=== PATIENT | female | born 1945 ===

== ENCOUNTER 2017-02-28 18:34 | Observation (INO) | payer MEDICARE, OTHER ==
[~2017-02-28] VITALS: Ht 157.5 cm; Wt 74.8 kg
--- NOTE | 2017-02-28 19:00 | NUR ---
PATIENT STATING UP IN HER ROOM BESIDE HER BED. ASSISTED PATIENT GETTING BACK IN BED. TOLD HER SHE IS ON BEDREST PER HER ORDERS. ASSISTED PATIENT USING A BEDPAN. ASSISTED PATIENT GETTING CHANGED INTO A GOWN. PATIENT IS ALERT AND ORIENTED X'S 4. NO SIGNS OF DISTRESS NOTED.
[2017-02-28 19:46] LABS: BASOPHILS 0.3 % (0-2); EOSINOPHILS 0.4 % (0-7); HEMATOCRIT 41.3 % (36.0-48.0); HEMOGLOBIN 14.4 g/dL (12-16); IMMATURE GRANULOCYTES 0.3 % (0-5); LYMPHOCYTES 24.3 % (15-50); MCH 32.4 pg (26.0-34.0); MCHC 34.9 g/dL (31.0-37.0); MEAN PLATELET VOLUME 9.3 fL (7.4-10.4); MONOCYTES 10.4 % (2-11); NEUTROPHILS 64.3 % (40-80); PLATELET COUNT 186 10x3/uL (130-400); RBC 4.44 10x6/uL (4.00-5.40); WBC 9.7 10x3/uL (4.8-10.8)
[2017-02-28 20:00] VITALS: BP 159/64
[2017-02-28 20:00] LABS: CALC OSMOLALITY 279 mosm/kg (275-300); CHLORIDE - SERUM 107 mmol/L (98-107); CREATININE - SERUM 0.7 mg/dL (0.6-1.3); GLUCOSE 85 mg/dL (74-106); SODIUM 141 mmol/L (136-145); UREA NITROGEN 12 mg/dL (7-18); eGFR NON AFRICAN AMERICAN 87 mL/min (90-120)
[2017-02-28] MEDS ORDERED: TIMOPTIC 0.25% O5 M1 EACH EYE (21:50)
[2017-02-28] MEDS ORDERED: TRAVATAN Z2.5 ML EACH EYE (21:50)
[2017-02-28] MEDS ORDERED: FISH OIL 1,0001 CA1 PO (21:51)
[2017-02-28] MEDS ORDERED: VITAMIN D250000 UNIT PO (21:51)
[2017-02-28] MEDS ORDERED: BIOTIN5 MG PO (21:52)
[2017-02-28] MEDS ORDERED: BIOTIN SL (21:54)
[2017-03-01] VITALS: BP 102/63
[2017-03-01 03:43] VITALS: BP 121/69; BMI 30.2
--- NOTE | 2017-03-01 07:42 | NUR ---
COMPLAINING OF GROIN PAIN WITH MOVEMENT. DEMEROL GIVEN IM TO R HIP.
[2017-03-01 08:18] VITALS: BP 150/67
--- NOTE | 2017-03-01 08:20 | NUR ---
ASSESSMENT COMPLETE. NO IV ACCESS. COMPLAINING OF PAIN TO GROIN AREA WITH MOVEMENT.
--- NOTE | 2017-03-01 11:30 | NUR ---
VISITING WITH COMPANY. DENIES ANY NEEDS AT THIS TIME.
[2017-03-01] MEDS ORDERED: CYCLOBENZAPRINE10 MG PO (12:12)
[2017-03-01] MEDS ORDERED: Demerol IM (12:12)
[2017-03-01 13:03] VITALS: BP 140/74
[2017-03-01 13:06] VITALS: Ht 157.5 cm; Wt 74.8 kg
--- NOTE | 2017-03-01 13:50 | NUR ---
Rehab Prescreening Consult recieved and the patient has been visited. She meets IRF criteria and agrees to participate in the required therapy. She will be admitted today. Sangita Lorenzo RN Clinical Liaison, Rehab
--- NOTE | 2017-03-01 14:00 | NUR ---
22 GUAGE INSERTED TO R HAND BY SAMANTHA UNGER RN WITHOUT DIFFICULTY X 1 ATTEMPT. DENIES ANY NEEDS AT THIS TIME.
[2017-03-01 16:21] VITALS: BP 127/49
--- NOTE | 2017-03-01 17:02 | NUR ---
REPORT CALLED TO [facility] ON REHAB. WILL DC TO REHAB AFTER EATING DINNER.
--- NOTE | 2017-03-01 18:15 | NUR ---
DC'D TO REHAB ROOM 1117 A VIA BED WITH BELONGINGS.
[2017-03-01] MEDS ORDERED: DEMEROL 2525 MG/1 ML IV (20:32)
[2017-03-01] MEDS ORDERED: DEMEROL 2525 MG/1 ML IM (20:33)
== END 2017-03-01 18:15 ==
LOC: D.MS 18:34 → OBSVTIME 18:35 → D.MS 03-01 18:15
PROVIDERS: ADMIT Family Medicine
DX: S32.592A Other specified fracture of left pubis, initial encounter for closed fracture (principal); W10.9XXA Fall (on) (from) unspecified stairs and steps, initial encounter; M81.0 Age-related osteoporosis without current pathological fracture; E55.9 Vitamin D deficiency, unspecified

== ENCOUNTER 2017-03-01 16:28 | Inpatient (IN) | payer MEDICARE, OTHER ==
[~2017-03-01] VITALS: Ht 157.5 cm; Wt 74.8 kg
[~2017-03-01 16:28] MED LIST: BIOTIN SL; BIOTIN5 MG PO; CYCLOBENZAPRINE10 MG PO; Demerol IM; FISH OIL 1,0001 CA1 PO; TIMOPTIC 0.25% O5 M1 EACH EYE; TRAVATAN Z2.5 ML EACH EYE; VITAMIN D250000 UNIT PO
--- NOTE | 2017-03-01 19:27 | NUR ---
UP IN THE BED WITH SEVERAL VISITORS AT BEDSIDE. PLEASANT AND TALKATIVE. NO S/S OF DISTRESS OBSERVED.
[2017-03-01] MEDS ORDERED: DEMEROL 2525 MG/1 ML IV (20:32)
[2017-03-01] MEDS ORDERED: DEMEROL 2525 MG/1 ML IM (20:33)
--- NOTE | 2017-03-01 21:04 | NUR ---
UP IN BED WITH EYES OPEN AND TV ON. PLEASANT AND COOPERATIVE. DENIES ANY PAIN. INCONTINENT OF BLADDER AND UNAWARE. DENIES ANY PAIN AT THIS TIME.
[2017-03-01 23:06] VITALS: BP 136/61; BMI 30.2
--- NOTE | 2017-03-02 01:12 | NUR ---
DEMEROL 25 MG IM GIVEN AT 0038. WHEN ATTEMPTING TO RECONCILLE MEDICATION THE COMPUTER LOCKED UP. UNABLE TO SIGN OUT MEDICATION. COMPUTER STILL WILL NOT LET THIS NURSE SIGN MEDICATION OUT STATING THIS NURSE ALREADY DOCUMENTING. WILL REASSESS PAIN.
--- NOTE | 2017-03-02 02:07 | NUR ---
RESTING IN BED WITH EYES CLOSED. NO S/S OF DISTRESS OBSERVED. CALL LIGHT IN REACH AND BED ALARM IN PLACE AND FUNCTIONING PROPERLY.
[2017-03-02 05:05] LABS: BASOPHILS 0.1 % (0-2); EOSINOPHILS 2.2 % (0-7); HEMATOCRIT 40.4 % (36.0-48.0); IMMATURE GRANULOCYTES 0.1 % (0-5); MCHC 34.7 g/dL (31.0-37.0); MCV 92.4 fL (80.0-100.0); MEAN PLATELET VOLUME 9.5 fL (7.4-10.4); MONOCYTES 9.2 % (2-11); NEUTROPHILS 62.4 % (40-80); PLATELET COUNT 178 10x3/uL (130-400); RBC 4.37 10x6/uL (4.00-5.40); WBC 7.6 10x3/uL (4.8-10.8)
[2017-03-02 05:21] LABS: CALC OSMOLALITY 277 mosm/kg (275-300); CALCIUM 8.5 mg/dL (8.5-10.1); CARBON DIOXIDE 22.2 mmol/L (21.0-32.0); CHLORIDE - SERUM 106 mmol/L (98-107); CREATININE - SERUM 0.7 mg/dL (0.6-1.3); POTASSIUM - SERUM 3.6 mmol/L (3.5-5.1); SODIUM 138 mmol/L (136-145); UREA NITROGEN 12 mg/dL (7-18); eGFR NON AFRICAN AMERICAN 87 mL/min (90-120)
[2017-03-02 05:22] LABS: GLUCOSE 133 mg/dL (74-106)
[2017-03-02 07:11] VITALS: BP 147/69
--- NOTE | 2017-03-02 07:33 | NUR ---
RESTING QUIETLY IN BED. NO S/S DISTRESS NOTED. CALL LIGHT IN REACH
[2017-03-02 10:08] VITALS: Ht 157.5 cm; Wt 74.8 kg
[2017-03-02 10:51] VITALS: BP 147/69
--- NOTE | 2017-03-02 12:05 | NUR ---
SITTING UP EATING LUNCH. DENIES NEEDS OR C/O. CALL LIGHT IN REACH
--- NOTE | 2017-03-02 12:46 | NUR ---
SITTING IN W/C IN ROOM. ALERT AND ORIENTED.
[2017-03-02 19:29] VITALS: BP 127/58
--- NOTE | 2017-03-02 19:29 | NUR ---
RECIEVED UP IN W/C. AWAKE ALERT AND ORIENTED. PLEASANT AND TALKATIVE. DENIES ANY PAIN. EXCITED ABOUT RECIEVING THERAPY TODAY. C/O BEING VERY WEAK.
--- NOTE | 2017-03-02 21:49 | NUR ---
ASSISTED TO BED. UNABLE TO BEAR WEIGHT ON RIGHT LEG. ATTEMPTED TO EDUCATE HER TO MAKE SMALL STEPS AROUND AND NOT TO TWIST HER HIPS WHEN SITTING DOWN. SHE STATED SHE WENT TO BATHROOM BY HERSELF EARLIER. EXPLAINED THAT SHE COULD FALL AND INJURY HERSELF WORSE. ASKED HER TO CALL IF SHE NEEDED TO GO TO THE BATHROOM FOR HER SAFTEY. VERBAL AGREEMENT MADE AND VERBAL UNDERSTANING VOICED.
--- NOTE | 2017-03-03 00:14 | NUR ---
RESTING IN BED WITH EYES CLOSED AND SNORING. NO S/S OF DISTRESS OBSERVED. CALL LIGHT AND OVERBED TABLE IN REACH.
--- NOTE | 2017-03-03 04:36 | NUR ---
RESTING IN BED IWTH EYES CLOSED. NO S/S OF DISTRESS OBSERVED. CALL LIGHT IN REACH.
--- NOTE | 2017-03-03 08:00 | NUR ---
SITTING UP IN BED EATING BREAKFAST. DENIES NEEDS OR C/O CALL LIGHT IN REACH
--- NOTE | 2017-03-03 12:32 | NUR ---
SITTING UP IN W/C IN ROOM EATING LUNCH. ALERT AND ORIENTED X4. DENIES INCREASED PAIN.
[2017-03-03 12:34] VITALS: BP 120/47
--- NOTE | 2017-03-03 17:06 | NUR ---
SITTING IN W/C WATCHING TV. HAS BEEN IN W/C MOST OF THE DAY AT HER CHOICE. DENIES NEEDING PAIN MEDS AT PRESENT.
[2017-03-03 19:00] VITALS: BP 114/54
--- NOTE | 2017-03-03 19:00 | NUR ---
RECIEVED UP IN WHEEL CHAIR WITH PERSONAL ALARM ATTACHED. PLEASANT AND TALKATIVE. DEIES ANY PAIN.
--- NOTE | 2017-03-03 21:04 | NUR ---
UP IN W/C WATCHING TV. ASSISTED TO TOILET. REQUIRES SUPERVISION. PLEASANT AND COOPERATIVE. DENIES ANY PAIN OR DISCOMFORT. CALL LIGHT AND WATER IN REACH.
--- NOTE | 2017-03-04 04:33 | NUR ---
RESTING IN BED WITH EYES CLOSED. NO S/S OF DISTRESS OBSERVED. CALL LIGHT AND OVERBED ATBLE IN [facility].
[2017-03-04 05:24] LABS: BASOPHILS 0.3 % (0-2); EOSINOPHILS 3.1 % (0-7); HEMATOCRIT 38.5 % (36.0-48.0); HEMOGLOBIN 13.3 g/dL (12-16); IMMATURE GRANULOCYTES 0.1 % (0-5); LYMPHOCYTES 45.9 % (15-50); MCH 32.1 pg (26.0-34.0); MCHC 34.5 g/dL (31.0-37.0); MEAN PLATELET VOLUME 9.4 fL (7.4-10.4); MONOCYTES 10.4 % (2-11); NEUTROPHILS 40.2 % (40-80); PLATELET COUNT 178 10x3/uL (130-400); RBC 4.14 10x6/uL (4.00-5.40); RDW 13.6 % (11.5-14.5); WBC 7.7 10x3/uL (4.8-10.8)
[2017-03-04 05:32] LABS: CALC OSMOLALITY 282 mosm/kg (275-300); CALCIUM 8.3 mg/dL (8.5-10.1); CARBON DIOXIDE 22.6 mmol/L (21.0-32.0); CHLORIDE - SERUM 108 mmol/L (98-107); CREATININE - SERUM 0.7 mg/dL (0.6-1.3); GLUCOSE 104 mg/dL (74-106); POTASSIUM - SERUM 3.4 mmol/L (3.5-5.1); SODIUM 142 mmol/L (136-145); UREA NITROGEN 13 mg/dL (7-18); eGFR NON AFRICAN AMERICAN 87 mL/min (90-120)
--- NOTE | 2017-03-04 06:24 | NUR ---
RESTING IN BED WITH EYES CLOSED. NO S/S OF DISTRESS OBSERVED. CALL LIGHT IN REACH.
[2017-03-04 08:06] VITALS: BP 149/75
--- NOTE | 2017-03-04 08:15 | NUR ---
PT RESTING IN BED WITH EYES OPEN CALL LIGHT IN REACH WILL MONITER
--- NOTE | 2017-03-04 14:49 | NUR ---
PT UP IN WHEELCHAIR AT BEDSIDE WILL MONITER
--- NOTE | 2017-03-04 18:30 | NUR ---
PT RESTING IN ROOM, DENIES NEEDS. WCTM.
--- NOTE | 2017-03-04 19:10 | NUR ---
RECIEVED UP IN W/C. PLEASANT AND COOPERATIVE. IV TO LEFT HAND D/C'D EARLIER TODAY. BANDAIDE TO SIE INTACT. NO REDNESS SWELLING OR DRAINAGE OBSERVED. CALL LIGHT IN REACH.
[2017-03-04 20:07] VITALS: BP 92/74
--- NOTE | 2017-03-04 21:00 | NUR ---
UP IN SHOWER AT THIS TIME. ASSISTED TO TOILET PRIOR TO SHOWER. NO C/O PAIN.
--- NOTE | 2017-03-05 | NUR ---
RESTING IN BED WITH EYES CLOSED. NO S/S OF DISTRESS OBSERVED. CALL LIGHT IN REACH.
--- NOTE | 2017-03-05 02:14 | NUR ---
AWAKE AND ALERT. ASSISTED TO TOILET. REQUIRES SUPERVISION. USES GRAB BAR TO AIDE HER TO STAND. GETS OFF TOILET SAME WAY. CALL LIGHT IN REACH.
--- NOTE | 2017-03-05 06:39 | NUR ---
RESTING IN BED WITH EYES CLOSED AT THIS TIME. NO S/S OF DISTRESS OBSERVED. SCD'S IN PLACE. CALL LIGHT IN REACH.
--- NOTE | 2017-03-05 08:15 | NUR ---
PT UP IN BED WITH EYES OPEN CALL LIGHT IN REACH EATING BREAKFAST TOLERATING WELL
[2017-03-05 08:19] VITALS: BP 128/50
--- NOTE | 2017-03-05 09:56 | NUR ---
Nutrition Monitoring and Eval: Pt is eating 72% meal avg on a regular diet. +BM 03/03/17. Meds and labs reviewed. Pt continues at low nutritional risk. Rec continue current diet. RD following.
--- NOTE | 2017-03-05 12:54 | NUR ---
PT RESTING IN BED WITH EYES OPEN CALL LIGHT IN REACH NO PROBLEMS WILL MONITER
--- NOTE | 2017-03-05 15:58 | NUR ---
PATIENT ADMITTED TO REHAB FROM ACUTE FLOOR. PLANS ARE FOR PATIENT TO RETURN HOME. WILL CONTINUE TO FOLLOW WITH PATIENT
--- NOTE | 2017-03-05 18:30 | NUR ---
PT RESTING IN ROOM, DENIES NEEDS. WCTM.
--- NOTE | 2017-03-05 19:40 | NUR ---
PT IS SITTING IN A WC IN HER ROOM WATCHING TV. AND VISITING WITH FRIENDS. ALERT AND ORIENTED X 3. DENIES ACUTE PAIN OR DISCOMFORT AT THIS TIME. VSS. NO NEEDS VOICED. SR'S ARE UP X 2 IN BED. CALL LIGHT AND BEDSIDE TABLE ARE WITHIN EASY REACH.
[2017-03-05 20:07] VITALS: BP 129/66
--- NOTE | 2017-03-05 21:48 | NUR ---
PT ASSISTED TO THE BATHROOM WITH MIN ASSIST ONLY FOR TRANSFERS, AND PULLING UP HER PANTS. SBA WITH ALL OTHER TASKS. LARGE LOOSE BM NOTED.
--- NOTE | 2017-03-05 23:38 | NUR ---
RESTING QUIETLY IN BED WITH EYES CLOSED.
--- NOTE | 2017-03-06 03:10 | NUR ---
RESTING QUIETLY IN BED, EYES CLOSED.
--- NOTE | 2017-03-06 06:24 | NUR ---
PT RESTING IN BED WITH EYES OPEN. NO NEEDS VOICED.
--- NOTE | 2017-03-06 08:05 | NUR ---
SITTING UP IN W/C IN ROOM FOR BREAKFAST. CALL LIGHT IN REACH.
[2017-03-06 09:06] VITALS: BP 135/56
--- NOTE | 2017-03-06 12:12 | NUR ---
STILL SITTING UP IN W/C. PAIN CONTROLLED WITH CURRENT MEDS.
--- NOTE | 2017-03-06 17:20 | RHP ---
PATIENT: ANDRE SHER MEDICAL RECORD: [id number] ACCOUNT: [id number] LOCATION:[facility]1117 : 43 ADMISSION DATE: 03/01/17 REHABILITATION HISTORY AND PHYSICAL EXAMINATION POST ADMISSION PHYSICIAN EXAMINATION DATE OF ADMISSION: 03/01/2017 ADMITTING DIAGNOSIS: Fractures of the left superior and inferior ramus. HISTORY OF PRESENT ILLNESS: The patient is a 71-year-old female patient admitted to rehab with a left superior and inferior pubic rami fracture. She presented to [facility] complaining of left hip pain that radiated to her groin and leg. She said that she was walking upstairs and missed one, causing her to fall on her left side. Onset was 1-2 hours prior to coming to the clinic. On exam she had crepitus, tenderness and effusion. She had difficulty getting up from a seated position, required 2-person assist in transfer, unable to put pressure on the left foot. Pelvis x-ray showed fracture of left superior and inferior pubic rami. She was admitted to the hospital. Pain continues to be 6 out of 10, receiving Demerol IV and Toradol. She has osteoarthritis and vitamin D deficiency, making her at risk for diabetes and other autoimmune disease as well as depression. She has chronic pain that interferes with her daily activities. 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 She is being monitored for acute mental status changes and shunt malfunction. Since then she is a high risk for falls. She was living with her spouse and taking care of him. She was moderately independent with ADLs, mobility using a cane. She wants to regain her strength to return home with her . COMORBIDITIES: Include hip pain, recent falls, vitamin D deficiency, inability to ambulate, inability to perform ADLs, fatigue, malaise, chronic back pain, osteoarthritis, glaucoma and thyroid nodule. PAST MEDICAL HISTORY: Significant for osteoporosis, vitamin D deficiency, osteoarthritis, glaucoma, fatigue, malaise and ventricular shunt. PAST SURGICAL HISTORY: Please see previous charts. ALLERGIES: CEPHALOSPORINS, NAPROXEN AND ZITHROMAX. CURRENT MEDICATIONS: Include meperidine as needed, on Cosopt eyedrops 1 drop b.i.d., polyethylene glycol 17 grams in 8 ounces of water daily, meperidine 25 mg q.6 hours p.r.n., travoprost eyedrops at bedtime, and Flexeril 10 mg t.i.d. p.r.n. spasms. HABITS: No tobacco use. FAMILY HISTORY: Noncontributory. SOCIAL HISTORY: Once again, the patient hopes to return back home and take care of her spouse. REVIEW OF SYSTEMS: GENERAL: Does complain of weakness. HEENT: Denies cold, cough, or congestion. HISTORY AND PHYSICAL [id number] ANDRE SHER CARDIOVASCULAR: Denies chest pain. PHYSICAL EXAMINATION: VITAL SIGNS: Stable, afebrile. GENERAL: A well-developed female in no acute distress, alert upon exam. HEENT: Normocephalic and atraumatic. Mucosa moist. NECK: Supple. No lymphadenopathy. LUNGS: Clear at this time. HEART: Regular rate and rhythm. ABDOMEN: Benign. EXTREMITIES: No clubbing, cyanosis or edema. NEUROLOGIC: She is intact. It should be noted though that she is unable to get up and bear weight on this left side without it having extreme pain. ASSESSMENT: This is a 71-year-old female patient who presents secondary to fractures in the left superior and inferior ramus secondary to a fall. The patient has potential to make improvement. We instituted the following multidisciplinary therapies including to, but not limited to physical, occupational, respiratory, speech, nutritional services, prosthetics and orthotics. Given her complex condition and risk for more complications, rehabilitation services cannot be provided at a low level of care such as a fpc facility. PLAN: 1. Admit to [facility] rehab for intensive inpatient therapy to include the following disciplines: A. Physical therapy to improve gait, all transfer skills and bed mobility to a modified level. B. Occupational therapy to improve activities of daily living a modified independent level. C. Case management to assist with discharge planning and placement options. D. Nutrition to assist with nutritional needs. E. Rehabilitation nursing to assist in monitoring the patient's underlying medical conditions and to assist with any type of bowel or bladder management. F. The patient's current medications and medical care will be continued. G. The patient will be placed on standard fall precautions. H. The patient's estimated length of stay is approximately 10-14 days. I. Discuss this patient during care team staff meeting this week. TRANSINT:[id number] Voice Confirmation ID: [id number] DOCUMENT ID: [id number] ANKITA notes whether there has been none or any medical/functional change since admission: - ANKITA attests patient continues to be appropriate for IRF: - HISTORY AND PHYSICAL [id number] ANDRE SHER SCOTT MD at 1720 CC: [id number] DICTATION DATE: 03/02/171823 LEGAL RECRUITER: 03/02/172030 ADM IN [place] [id number] [place] [id number]
[2017-03-06 19:45] VITALS: BP 128/60
--- NOTE | 2017-03-06 19:45 | NUR ---
PT RESTING IN HER WC IN HER ROOM WATCHING TV. ALERT AND ORIENTED X 4. DENIES PAIN OR DISCOMFORT AT THIS TIME. OFFERED A SHOWER, AND SHE STATED OT DID HER SHOWER PART OF HER THERAPY THIS AM. VSS. NO NEED VOICED. CALL LIGHT AND BEDSIDE TABLE ARE WITHIN EASY REACH.
--- NOTE | 2017-03-06 22:28 | NUR ---
PT RESTING IN BED WITH EYES CLOSED. NO DISTRESS NOTED.
--- NOTE | 2017-03-07 00:24 | NUR ---
PT ASSISTED TO THE BATHROOM WITH SBA. MOD ASSIST WITH CLOTHING.
--- NOTE | 2017-03-07 02:40 | NUR ---
IN BED, EYES CLOSED. NO DISTRESS NOTED.
--- NOTE | 2017-03-07 06:17 | NUR ---
PT ASSISTED TO THE BATHROOM WITH MIN ASSIST. VOIDED WITHOUT DIFFICULTY. PT CHOSE TO SIT UP IN WC AFTER, BUT REFUSED TO PUT ON HER PANTS AT THIS TIME.
--- NOTE | 2017-03-07 08:11 | NUR ---
EATING BREAKFAST IN ROOM. CALL LIGHT IN REACH. DENIES NEEDS.
[2017-03-07 08:50] VITALS: BP 125/45
--- NOTE | 2017-03-07 19:20 | NUR ---
PT. UP IN W/C AND HAS NO VOICED NEEDS AT THIS TIME. CALL LIGHT WITHIN REACH. ASSESSMENT COMPLETED.
[2017-03-07 20:00] VITALS: BP 130/70
--- NOTE | 2017-03-07 23:02 | NUR ---
PT. IN BED WITH HOB UP FOR COMFORT WITH EYES CLOSED AND RESP. DEEP AND EVEN. SCS'S ON WITHOUT ANY ALARMS. CALL LIGHT WITHIN REACH.
--- NOTE | 2017-03-08 03:00 | NUR ---
PT. IN BED WITH HOB UP FOR COMFORT WITH EYES CLOSED AND RESP. DEEP AND EVEN. SCD'S IN PLACE WITHOUT ANY ALARMS. CALL LIGHT WITHIN REACH.
[2017-03-08 07:42] VITALS: BP 119/56
--- NOTE | 2017-03-08 07:44 | NUR ---
RESTING QUIETLY IN BED. EYES CLOSED. ALL LIGHT IN REACH
--- NOTE | 2017-03-08 13:02 | NUR ---
SITTING IN W/C IN ROOM. HAS LUNCH AND NOW RESTING IN CHAIR AND WATCHING TV.
--- NOTE | 2017-03-08 16:31 | NUR ---
PT ASKED FOR PAIN MEDS. NURSE THOUGHT SHE STILL GOT 25MG AND WASTED FIRST HALF OF DEMERAL PILL (THAT WAS 50MG). REALIZED PT GOT 50 MG PILL. HAD TO WASTE SECOND HALF OF PILL SO A NEW 50 MG PILL COULD BE GIVEN.
[2017-03-08 19:27] VITALS: BP 111/45
--- NOTE | 2017-03-08 19:27 | NUR ---
RECIEVED UP IN W/C . PLEASANT ANAD COOPERATIVE. DENIES ANY PAIN. CALL LIGHT IN REACH.
--- NOTE | 2017-03-08 21:18 | NUR ---
UP IN W/C. PLEASANT AND COOPERATIVE. DENIES ANY PAIN AT THIS TIME. CALL LIGHT IN REACH.
--- NOTE | 2017-03-09 00:59 | NUR ---
C/O PELVIC PAIN AT 8. REQUESTED PAIN MEDICATON. MED GIVEN PER ORDERS. WILL REASSESS.
--- NOTE | 2017-03-09 02:18 | NUR ---
RESTING IN BED WITH EYES CLOSED. NO S/S OF DISTRESS OBSERVED. CALL LIGHT AND OVER BED TABLE IN REACH.
--- NOTE | 2017-03-09 04:21 | NUR ---
ASSISTED TO BED. PLEASANT AND COOPERATIVE. DENIES ANY PAIN. DOES HAVE EXPRESSIONS OF PAIN WHEN TRANSFERING. DOES NOT WANT ANYTHING AT THIS TIME.
--- NOTE | 2017-03-09 07:10 | NUR ---
RESTING QUIETLY IN BED. NO S/S DISTRESS. CALL LIGHT IN REACH
[2017-03-09 13:18] VITALS: BP 125/71
--- NOTE | 2017-03-09 13:56 | NUR ---
ASSISTED PT TO SHOWER.
--- NOTE | 2017-03-09 19:01 | NUR ---
RECIEVED UP IN W/C WATCHING TV. PLEASANT AND TALKATIVE. DENIES ANY PAIN. CALL LIGHT IN REACH.
[2017-03-09 19:33] VITALS: BP 100/45
--- NOTE | 2017-03-09 20:39 | NUR ---
C/O PELVIC PAIN AND REQUESTED PAIN MEDICATION. MEDS GIVEN PER ORDERS. WILL REASSESS.
--- NOTE | 2017-03-09 21:18 | NUR ---
RESTING IN BED WITH EYES OPEN AND TV ON. CALL LIGHT AND OVERBED TABLE IN REACH.
--- NOTE | 2017-03-10 01:07 | NUR ---
RESTING IN BED WITH EYES CLOSED. NO S/S OF DISTRESS OBSERVED. O2@4 LITERS PER N/C IN PLACE. RESP. EVEN AND UNLABORED. CALL LIGHT AND OVERBED TABLE IN REACH.
[2017-03-10 07:36] VITALS: BP 118/55
--- NOTE | 2017-03-10 13:00 | NUR ---
PT ON SIDE OF BED WATCHING TV DENIES PAIN AT THIS TIME. WILL MONITOR
--- NOTE | 2017-03-10 18:12 | NUR ---
PT RESTING ,DENIES NEEDS. WCTM.
--- NOTE | 2017-03-10 19:20 | NUR ---
SIT UP IN WHEELCHAIR AND WATCH TV NEWS.
[2017-03-11 00:08] VITALS: BP 132/77
--- NOTE | 2017-03-11 01:06 | NUR ---
REST IN BED, EYE CLOSE, CALL LIGHT IN REACH.
--- NOTE | 2017-03-11 03:05 | NUR ---
ASSISTED PT TO BATHROOM AND BACK TO BED.
[2017-03-11 07:09] LABS: BASOPHILS 0.4 % (0-2); EOSINOPHILS 2.4 % (0-7); HEMATOCRIT 37.9 % (36.0-48.0); HEMOGLOBIN 12.9 g/dL (12-16); IMMATURE GRANULOCYTES 0.1 % (0-5); LYMPHOCYTES 42.7 % (15-50); MCH 32.3 pg (26.0-34.0); MCV 94.8 fL (80.0-100.0); MEAN PLATELET VOLUME 9.2 fL (7.4-10.4); MONOCYTES 11.8 % (2-11); NEUTROPHILS 42.6 % (40-80); RDW 13.6 % (11.5-14.5); WBC 7.1 10x3/uL (4.8-10.8)
[2017-03-11 07:12] LABS: PLATELET COUNT 261 10x3/uL (130-400)
[2017-03-11 07:17] LABS: CALC OSMOLALITY 281 mosm/kg (275-300); CALCIUM 8.7 mg/dL (8.5-10.1); CARBON DIOXIDE 22.3 mmol/L (21.0-32.0); CHLORIDE - SERUM 110 mmol/L (98-107); CREATININE - SERUM 0.6 mg/dL (0.6-1.3); GLUCOSE 95 mg/dL (74-106); SODIUM 141 mmol/L (136-145); UREA NITROGEN 14 mg/dL (7-18); eGFR NON AFRICAN AMERICAN > 90 mL/min (90-120)
[2017-03-11 08:00] VITALS: BP 127/56
--- NOTE | 2017-03-11 08:02 | NUR ---
PT RESTING IN BED WITH EYES OPEN CALL LIGHT IN REACH NO PROBLEMS WILL MONITER
--- NOTE | 2017-03-11 19:30 | NUR ---
PM ROUNDS MADE, PT SITTING UP IN WC VISITING WITH FAMILY, WILL COME BACK TO DO ASSESSMENT
--- NOTE | 2017-03-11 20:30 | NUR ---
ASSESSMENT PER FLOW SHEET, PT DENIES FLATUS OR BM, PT INST ON USING CALL LIGHT WHEN NEEDING TO GET UP TO VOID, PT VERBALIZES UNDERSTANDING, PT RATES LEFT HIP PAIN 10/08, INFORMED PT THAT I WILL CHECK TO SEE WHEN PAIN MED IS DUE, PT VERBALIZES UNDERSTANDING, DENIES NEEDS AT THIS TIME
--- NOTE | 2017-03-11 21:26 | NUR ---
PT SITTING UP IN WC, ADM 2100 MEDS AND PAIN MED PER MD ORDERS, SEE EMAR, PT REPORTS THAT SHE IS GOING TO SIT UP FOR JUST A BIT MORE, THEN WASH FACE, USE THE BR, AND THEN GO TO BED, PT INST TO USE CALL LIGHT WHEN READY FOR BED
[2017-03-11 21:45] VITALS: BP 117/58
--- NOTE | 2017-03-11 22:30 | NUR ---
PT AT SINK, JUST FINISHED WASHING FACE AND BRUSHING TEETH, PT TO BR, PT VOIDED BY SELF WITH NO DIFFICULTY, PT BACK TO , TO SINK, WASHES HANDS, PT TO BED, PT POSITIONED SELF, PT DENIES FURTHER NEEDS, BED IN LOW POSITION, SIDE RAILS X 2, CALL LIGHT IN REACH
--- NOTE | 2017-03-12 00:30 | NUR ---
PT RESTING WITH EYES CLOSED, RESP QUIET, NO DISTRESS NOTED, LEFT UNDISTURBED AT THIS TIME
--- NOTE | 2017-03-12 02:15 | NUR ---
PT RESTING WITH EYES CLOSED, RESP QUIET, NO DISTRESS NOTED, LEFT UNDISTURBED AT THIS TIME, BED IN LOW POSITION, SIDE RAILS X 2, CALL LIGHT IN REACH, BED ALARM ON AND WORKING PROPERLY
--- NOTE | 2017-03-12 04:10 | NUR ---
PT RESTING WITH EYES CLOSED, RESP QUIET, NO DISTRESS NOTED, LEFT UNDISTURBED AT THIS TIME
--- NOTE | 2017-03-12 06:20 | NUR ---
PT AWAKE, REPORTS SLEEPING WELL LAST NIGHT, DENIES NEEDS OR PAIN AT THIS TIME, BED IN LOW POSITION, SIDE RAILS X 2, CALL LIGHT IN REACH, BED ALARM ON AND WORKING PROPERLY
--- NOTE | 2017-03-12 06:44 | NUR ---
SHIFT REPORT TO DAY SHIFT
[2017-03-12 08:33] VITALS: BP 135/54
--- NOTE | 2017-03-12 12:00 | NUR ---
PT UP IN WHEELCHAIR EATING LUNCH TOLERATING WELL WILL MONITER
--- NOTE | 2017-03-12 14:01 | NUR ---
Nutrition Follow Up: Pt is eating 73% meal avg on a regular diet. +BM 03/11/17. Labs and meds reviewed. Rec continue current diet. RD following.
--- NOTE | 2017-03-12 15:29 | NUR ---
PATIENT FEELS THAT SHE IS UNABLE TO RETURN HOME AT THIS TIME, SHE WOULD LIKE REFERRAL TO BE FAXED TO [facility] AND IF NO VACANCY SHE WOULD LIKE TO GO TO [place]. REFERRAL FAXED TO [facility]
--- NOTE | 2017-03-12 18:06 | NUR ---
PT RESTING IN BED WITH EYES OPEN CALL LIGHT IN REACH WILL MONITER
--- NOTE | 2017-03-12 19:00 | NUR ---
RECIEVED UP IN W/C.PLEASANT AND COOPERATIVE. DENIES ANY PAIN OR DISCOMFORT AT THIS TIME. REQUEST PAIN PILL WHEN MEDS ARE GIVEN. CALL LIGHT IN REACH.
[2017-03-12 19:25] VITALS: BP 122/60
[2017-03-12 20:04] VITALS: BP 122/60
--- NOTE | 2017-03-12 21:32 | NUR ---
UP IN W/C. PLEASANT AND COOPERATIVE. DENIES ANY PAIN AT THIS TIME.CALL LIGHT IN REACH.
--- NOTE | 2017-03-13 06:36 | NUR ---
ASSISTED OUT OF BED AND TO TOILET. THEN ASSISTED WITH DRESSING. UNABLE TO PUT PANTS OR BRIEF ON. STATED " THERAPY IS GOING TO COME GET ME AT 0730 THIS MORNING". UP IN W/C READY AT THIS TIME.
[2017-03-13 08:53] VITALS: BP 135/48
--- NOTE | 2017-03-13 10:42 | NUR ---
SITTING IN HORTA IN W/C TALKING TO STAFF.
--- NOTE | 2017-03-13 11:14 | NUR ---
SITTING UP IN W/C. DENIES NEEDS
--- NOTE | 2017-03-13 16:00 | NUR ---
CARE TEAM MEETING: PATIENT PROGRESSING WELL AT THIS TIME. SHE HAS BEEN ACCEPTED TO [facility], SHE WILL DISCHARGE THERE 03/15/17 VIA FACILITY VAN.
--- NOTE | 2017-03-13 19:00 | NUR ---
RECIEVED UP IN W/C .PLEASANT AND COOPERATIVE. DENIES ANY PAIN. CALL LIGHT IN REACH.
--- NOTE | 2017-03-13 21:12 | NUR ---
UP IN W/C. PLEASANT AND COOPERATIVE. CALL LIGHT AND OVERBED TABLE IN REQACH.
--- NOTE | 2017-03-14 00:05 | NUR ---
RESTING IN BED WITH EYES CLOSED. NO S/S OF DISTRESS OBSERVED. CALL LIGHT AND OVERBED TABLE IN REACH.
--- NOTE | 2017-03-14 04:16 | NUR ---
RESTING IN BED WITH EYES CLOSED. HOB ELEVATED. NO S/S OF DISTRESS OBSERVED. CALL LIGHT AND OVERBED TABLE IN REACH.
--- NOTE | 2017-03-14 12:08 | NUR ---
EATING LUNCH. DENIES NEEDS. CALL LIGHT IN REACH
--- NOTE | 2017-03-14 17:54 | NUR ---
SITTING UP IN W/C IN ROOM EATING SUPPER. CALL LIGHT IN REACH
--- NOTE | 2017-03-14 19:30 | NUR ---
PT UP IN W/C. WATCHING TV. ALERT & ORIENTED. NO O2. NO IV. BED IN LOWEST POSITION AND CALL LIGHT WITHIN REACH.
[2017-03-14 20:02] VITALS: BP 120/56
--- NOTE | 2017-03-14 23:30 | NUR ---
PT LYING IN BED. EYES CLOSED. CHES RISING AND FALLING. BED IN LOWEST POSITION AND CALL LIGHT WITHIN REACH.
--- NOTE | 2017-03-15 03:30 | NUR ---
PT IN BED WITH HOB UP FOR COMFORT. EYES CLOSED. RESPIRATIONS EVEN AND UNLABORED. BED IN LOWEST POSITION AND CALL LIGHT WITHIN REACH.
--- NOTE | 2017-03-15 04:58 | NUR ---
RESTING IN BED WITH EYES CLOSED. NO S/S OF DISTRESS OBSERVED. HOB ELEVATED TO 30 DEGREES. CALL LIGHT AND OVERBED TABLE IN REACH.
--- NOTE | 2017-03-15 05:54 | NUR ---
ASSISTED PT TO BATHROOM AND GETTING DRESSING. PT UP IN W/C WATCHING TV. CALL LIGHT WITHIN REACH.
--- NOTE | 2017-03-15 08:00 | NUR ---
PATIENT IS ALERT/ORIENT X4. SITTING UP IN WHEELCHAIR WITH CALL LIGHT INPLACE. VOICES NO NEEDS AT THIS TIME. THIS NURSE TALKED ABOUT DISCHARGE TO [facility] WITH PATIENT. PATIENT STATED SHE IS EXCITED TO GO AND HER NEXT STEP WILL BE TO GO BACK HOME.
[2017-03-15] MEDS ORDERED: DEMEROL 2525 MG/1 ML IM (08:59)
[2017-03-15 09:03] VITALS: BP 119/47
--- NOTE | 2017-03-15 09:34 | NUR ---
PATIENT DISCHARING TO [facility]. NO DME OR HOME HEALTH NEEDED AT THIS TIME. PATIENT CHOICE FORM FOR SNF AND [facility] FORM SIGNED, EXPLAINED AND FILED IN CHART.AN APPOINTMENT WITH DR. PEREZ WILL BE MADE AT TIME OF DISCHARGE FROM FACILITY.
--- NOTE | 2017-03-15 10:44 | NUR ---
[facility] HERE TO TAKE PATIENT TO THEIR FACILITY. REPORT CALLED TO LUCY TRAVIS.
== END 2017-03-15 10:50 | DRG 561 ==
LOC: D.REHAB 16:28
PROVIDERS: ADMIT Emergency Medicine
DX: S32.512D Fracture of superior rim of left pubis, subsequent encounter for fracture with routine healing (principal); W19.XXXD Unspecified fall, subsequent encounter; E55.9 Vitamin D deficiency, unspecified; R53.83 Other fatigue; R53.81 Other malaise; M19.90 Unspecified osteoarthritis, unspecified site; G89.29 Other chronic pain; M54.5 Low back pain; M81.0 Age-related osteoporosis without current pathological fracture; H40.9 Unspecified glaucoma; Z87.820 Personal history of traumatic brain injury

== ENCOUNTER → 2017-05-01 12:19 | Outpatient (CLI) | payer MEDICARE, OTHER ==
[2017-03-02 10:08] VITALS: BMI 30.2
[~2017-05-01 12:19] MED LIST changes: +DEMEROL 2525 MG/1 ML IM; +DEMEROL 2525 MG/1 ML IV
[2017-05-01 13:56] LABS: APPEARANCE CLOUDY (CLEAR); BILIRUBIN NEGATIVE (NEGATIVE); COLOR YELLOW (YELLOW); GLUCOSE NEGATIVE (NEGATIVE); KETONE NEGATIVE (NEGATIVE); NITRITE POSITIVE (NEGATIVE); PROTEIN NEGATIVE (NEGATIVE); SPECIFIC GRAVITY 1.025 (1.005-1.020); UROBILINOGEN NORMAL (NORMAL)
[2017-05-01 14:00] LABS: BACTERIA MANY /hpf (NONE SEEN); CALCIUM OXALATE CRYSTALS 0-5 /hpf (NONE SEEN); EPITHELIAL CELLS 0-5 /hpf (0-5); HYALINE CAST 0-5 /lpf (NONE SEEN); MUCUS >1+ /lpf (NONE SEEN); RED CELLS - URINE 0-5 /hpf (0-5); WHITE CELLS - URINE 25-50 /hpf (0-5)
== END | disposition home or self-care (01) ==
LOC: D.LABREF 12:19
PROVIDERS: Family Medicine
DX: S32.502A Unspecified fracture of left pubis, initial encounter for closed fracture (principal); X58.XXXA Exposure to other specified factors, initial encounter; Y93.89 Activity, other specified; Y92.029 Unspecified place in mobile home as the place of occurrence of the external cause; Z51.81 Encounter for therapeutic drug level monitoring; Z79.891 Long term (current) use of opiate analgesic